=== PATIENT | male | born 2000 | race Caucasian/White ===

== ENCOUNTER 2020-02-16 08:11 | Emergency (ER) | payer OTHER ==
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
[2020-02-16] MEDS ORDERED: Lidocaine 1% 10 ML MDV INJECT ONE (08:31)
[2020-02-16] MEDS ORDERED: Diphtheria,Pertussis(Acell),Tetanus Vaccine 0.5 ML Syringe IM ONE (08:31)
--- NOTE | 2020-02-16 09:17 | CT ---
Head CT Technique: Multiple axial sections through the brain were obtained. Intravenous contrast was not utilized. Comparison: No prior intracranial imaging is available. Findings: Ventricles along with basal cisterns and sulci over the convexities are within normal limits for the patient's age. No abnormal parenchymal densities are seen. No evidence of intracranial hemorrhage. No midline shift or mass effect is seen. Mild mucosal thickening is seen within the sphenoid sinus and minimal mucosal thickening within the ethmoid sinuses which is most likely chronic. No acute mastoid sinus findings are seen. No acute calvarial abnormality is appreciated. Impression: 1. Sinus findings which are most likely pre-existing and chronic. 2. No acute intracranial abnormality is identified. Diagnostic code #2 This report was dictated in MDT
== END 2020-02-16 10:00 | disposition home or self-care (01) ==
LOC: JD.ED 08:11
DX: S09.90XA Unspecified injury of head, initial encounter (principal); S01.21XA Laceration without foreign body of nose, initial encounter; Z23 Encounter for immunization; V59.9XXA Occupant (driver) (passenger) of pick-up truck or van injured in unspecified traffic accident, initial encounter
CPT/HCPCS: 12011; 70450; 90471; 90715; 99285; J2001; 99282